=== PATIENT | female | born 1990 | race Caucasian/White ===

== ENCOUNTER 2021-03-16 20:09 | Emergency (ER) | payer MEDICAID ==
[~2021-03-16] VITALS: Ht 167.6 cm; Wt 77.1 kg
[2021-03-16] MEDS ORDERED: IBUPROFEN 600 MG TABLET ONE (21:57)
[2021-03-16] MEDS ORDERED: IBUPROFEN 600 MG TABLET PO ONE (22:00)
[2021-03-16] MEDS ORDERED: IBUP-1955 PO (22:19)
--- NOTE | 2021-03-16 22:39 | NUR ---
[facility] EMT AT BEDSIDE, SPLINT APPLIED, CRUTCHES PROVIDED
--- NOTE | 2021-03-16 23:02 | NUR ---
Patient discharged to home in stable condition. Written and verbal after care instructions given. Patient verbalizes understanding of instruction.
[2021-03-16 23:09] VITALS: BP 128/72
== END 2021-03-16 22:50 | disposition home or self-care (01) ==
LOC: ER 20:19
DX: S92.324A Nondisplaced fracture of second metatarsal bone, right foot, initial encounter for closed fracture (principal); F17.200 Nicotine dependence, unspecified, uncomplicated; Z60.2 Problems related to living alone; X50.1XXA Overexertion from prolonged static or awkward postures, initial encounter; Y93.89 Activity, other specified; Y92.830 Public park as the place of occurrence of the external cause; Y99.8 Other external cause status
CPT/HCPCS: 73630-TC

== ENCOUNTER → 2021-11-25 | Emergency (ER) | payer MEDICAID ==
[~2021-11-25] VITALS: Ht 167.6 cm; Wt 77.1 kg
[~2021-11-25] MED LIST: CIPR5DRO RIGHTEYE; IBUP-1955 PO
--- NOTE | 2021-11-25 10:07 | NUR ---
Patient discharged to home in stable condition. RX,Written and verbal after care instructions given. Patient verbalizes understanding of instruction.
[2021-11-25 10:10] VITALS: BP 122/79
== END | disposition home or self-care (01) ==
LOC: ER 07:02
DX: J06.9 Acute upper respiratory infection, unspecified (principal); Z20.822 Contact with and (suspected) exposure to COVID-19; H10.9 Unspecified conjunctivitis; F17.200 Nicotine dependence, unspecified, uncomplicated
CPT/HCPCS: 71045; 87426; 87804; 99284; C9803 ×2; U0003

== ENCOUNTER 2022-09-24 15:13 | Emergency (ER) | payer MEDICAID ==
[~2022-09-24] VITALS: Ht 170.2 cm; Wt 74.8 kg
--- NOTE | 2022-09-24 15:25 | NUR ---
RECEIVED PT 31 YRS FEMALE CAME FROM HOME C/O ABDOMINALE PAIN EPGASTRIC PAIN FOR 3 DAYS WITH PAIN AND DISCOMFORT WITH EATING SKIN WARM AND DRY TO TOUCH
--- NOTE | 2022-09-24 15:30 | NUR ---
UA SENT TO LAB
[2022-09-24] MEDS ORDERED: ONDANSETRON HCL/PF 4 MG/2 ML VIAL ONE (15:54)
[2022-09-24] MEDS ORDERED: FAMOTIDINE/PF INJ 20 MG/2 ML VIAL IV ONE ×2 (15:55→16:00)
[2022-09-24] MEDS ORDERED: ONDANSETRON HCL/PF 4 MG/2 ML VIAL IVP ONE (16:00)
[2022-09-24] MEDS ORDERED: IV NS 0.9% 1,000 ML BAG IV ONE (16:00)
--- NOTE | 2022-09-24 16:00 | NUR ---
INSERTED ANGO CATHETER G 18 ON RT AC BLOOD DROW AND SENT TO LAB
[2022-09-24 16:21] LABS: BASOPHILS % (AUTO) 0.3 % (0.0-2.0); HEMATOCRIT 39 % (33-45); HEMOGLOBIN 13.1 g/dL (11.5-14.8); LYMPHOCYTES # (AUTO) 1.9 K/uL (0.8-4.8); LYMPHOCYTES % (AUTO) 24.7 % (20.0-44.0); MEAN CORPUSCULAR HGB CONC 33 g/dl (31.0-36.0); MEAN CORPUSCULAR VOLUME 92 fL (82-100); MONOCYTES # (AUTO) 0.5 K/uL (0.1-1.30); MONOCYTES % (AUTO) 6.9 % (2.0-12.0); NEUTROPHILS # (AUTO) 5.2 K/uL (1.8-8.9); NEUTROPHILS % (AUTO) 67.1 % (43.0-81.0); PLATELET COUNT (AUTO) 177 K/uL (150-450); RED BLOOD CELL COUNT(AUTO) 4.25 MIL/uL (4.0-5.2); WHITE BLOOD COUNT (AUTO) 7.8 K/uL (4.3-11.0)
--- NOTE | 2022-09-24 16:30 | NUR ---
RESTING AND ASLEEPY NO ABDOMINAL PAIN DINIAL EPGASTRIC PAIN
[2022-09-24 16:37] LABS: ALBUMIN 3.9 g/dL (3.4-5.0); BILIRUBIN,DIRECT 0.2 mg/dL (0.0-0.2); BILIRUBIN,TOTAL 0.4 mg/dL (0.2-1.0); TOTAL PROTEIN, SERUM 7.5 g/dL (6.4-8.2)
[2022-09-24] MEDS ORDERED: ONDA4TAB5 PO (17:07)
[2022-09-24] MEDS ORDERED: FAMO20TA8 PO (17:07)
--- NOTE | 2022-09-24 17:50 | NUR ---
IV removed. Catheter intact and site benign. Pressure and 4x4 applied to site. No bleeding noted.
--- NOTE | 2022-09-24 17:51 | NUR ---
Patient discharged to home in stable condition. Written and verbal after care instructions given. Patient verbalizes understanding of instruction.
[2022-09-24 18:03] VITALS: BP 127/72
== END 2022-09-24 18:04 | disposition admitted as inpatient to this hospital (09) ==
LOC: ER 15:39
DX: K52.9 Noninfective gastroenteritis and colitis, unspecified (principal); R10.13 Epigastric pain; F17.200 Nicotine dependence, unspecified, uncomplicated; Z90.89 Acquired absence of other organs; Z79.899 Other long term (current) drug therapy
CPT/HCPCS: 99285; 96374; 96361; 96375; 85025; 83690; 80076; 83735; 84703; 36415; J3490; J2405; J7030